=== PATIENT | female | born 1975 | race Caucasian/White ===

== ENCOUNTER 2022-04-13 06:53 | Emergency (ER) | payer OTHER ==
[~2022-04-13] VITALS: Ht 165.1 cm; Wt 87.1 kg
[2022-04-13] MEDS ORDERED: PROSCAR5 MG PO (07:22)
[2022-04-13] MEDS ORDERED: RESTORIL7.5 MG PO (07:22)
[2022-04-13] MEDS ORDERED: CLONAZEPAM0.5 MG PO (07:23)
[2022-04-13] MEDS ORDERED: NEURONTIN300 MG (07:23)
== END 2022-04-13 16:04 | disposition home or self-care (01) ==
LOC: ER 06:53
DX: R10.32 Left lower quadrant pain (principal); N13.2 Hydronephrosis with renal and ureteral calculous obstruction